=== PATIENT | female | born 2000 | race African-American/Black ===

== ENCOUNTER 2024-11-16 18:09 | Emergency (ER) | payer MEDICAID ==
[~2024-11-16] VITALS: Ht 160 cm; Wt 113.0 kg
[2024-11-16 18:16] VITALS: O2SAT 100
[2024-11-16] MEDS ORDERED: MUPI1OIN4 TP (20:32)
[2024-11-16 20:42] VITALS: BP 150/87; PULSE 88; RESP 18; O2SAT 100
== END 2024-11-16 20:45 | disposition home or self-care (01) ==
LOC: ER 18:09
DX: L01.00 Impetigo, unspecified (principal)
CPT/HCPCS: 99283

== ENCOUNTER 2024-12-29 10:56 | Emergency (ER) | payer MEDICAID ==
[~2024-12-29] VITALS: Ht 170.2 cm; Wt 91.0 kg
[~2024-12-29 10:56] MED LIST: MUPI1OIN4 TP
[2024-12-29 11:00] VITALS: O2SAT 98
[2024-12-29 11:06] VITALS: BP 131/77; PULSE 106; RESP 16; TEMP 36.9; O2SAT 99
[2024-12-29 11:28] LABS: BASOPHILS % 0.6 % (0.0-2.0); EOSINOPHILS % 0.9 % (0.0-5.0); HEMATOCRIT. 34.7 % (36.0-48.0); HEMOGLOBIN. 11.6 g/dL (12.0-16.0); LYMPHOCYTES % 29.7 % (20.0-50.0); MEAN PLATELET VOLUME 7.4 fl (7.4-10.4); MONOCYTES % 7.9 % (2.0-8.0); NEUTROPHILS % 60.9 % (40.0-76.0); PLATELET 459 x1000/uL (130-400); RED BLOOD CELL COUNT 4.14 mill/uL (4.2-5.4); RED CELL DISTRIBUTION WIDTH 14.3 % (11.6-14.6)
[2024-12-29 11:43] LABS: CREATININE 0.7 mg/dL (0.6-1.0); UREA NITROGEN BLOOD < 5 mg/dL (9-23)
[2024-12-29] MEDS: ONDANSETRON 4MG ODT PO ONE (12:27)
[2024-12-29] MEDS: MAGNESIUM/ALUMINUM HYDROXIDE/SIMETHICONE 30ML UDC PO ONE (12:27)
[2024-12-29] MEDS ORDERED: ONDA-239 PO (14:09)
[2024-12-29 15:32] LABS: CLARITY URINE CLOUDY (CLEAR); COLOR URINE YELLOW (YELLOW); GLUCOSE URINE NEGATIVE (NEGATIVE); KETONES URINE NEGATIVE (NEGATIVE); LEUKOCYTE ESTERASE URINE 1+ (NEGATIVE); NITRITE URINE POSITIVE (NEGATIVE); OCCULT BLOOD URINE NEGATIVE (NEGATIVE); PH URINE 8.0 (4.5-8.0); PROTEIN URINE TRACE (NEGATIVE); SPECIFIC GRAVITY URINE 1.019 (1.005-1.030); UROBILINOGEN URINE 1.0 E.U./dL (0.2-1.0)
[2024-12-29 15:59] LABS: BACTERIA URINE 3+; RBC URINE 0-2 /hpf (0-2); SQUAMOUS EPITHELIAL CELL URINE FEW /lpf (RARE/1+)
== END 2024-12-29 15:40 | disposition left against medical advice (07) ==
LOC: ER 10:56
DX: R11.2 Nausea with vomiting, unspecified (principal); R10.13 Epigastric pain
CPT/HCPCS: 99283; 80048; 81003; 83690; 85025; 36415; Q0162

== ENCOUNTER 2025-02-18 08:48 | Emergency (ER) | payer MEDICAID ==
[~2025-02-18] VITALS: Ht 170.2 cm; Wt 109.0 kg
[~2025-02-18 08:48] MED LIST changes: +ONDA-239 PO
[2025-02-18 08:51] VITALS: O2SAT 98
[2025-02-18 09:06] VITALS: BP 152/100; PULSE 75; RESP 14; TEMP 36.6; O2SAT 100
[2025-02-18] MEDS: CEFTRIAXONE SODIUM 500MG VIAL IM ONE (11:00)
[2025-02-18] MEDS ORDERED: DOXY100T28 MT (11:24)
[2025-02-22 04:07] LABS: CHLAMYDIA TRACHOMATIS NAA Negative (Negative); NEISSERIA GONORRHOEAE NAA Negative (Negative)
== END 2025-02-18 11:42 | disposition home or self-care (01) ==
LOC: ER 08:48
DX: Z11.3 Encounter for screening for infections with a predominantly sexual mode of transmission (principal)
CPT/HCPCS: 99283; 87491; 87591; 81025; 96372; J0696

== ENCOUNTER 2025-03-07 18:35 | Emergency (ER) | payer MEDICAID ==
[~2025-03-07] VITALS: Ht 172.7 cm; Wt 85.0 kg
[~2025-03-07 18:35] MED LIST changes: +DOXY100T28 MT
[2025-03-07 18:47] VITALS: O2SAT 100
[2025-03-07 19:40] LABS: BASOPHILS % 0.8 % (0.0-2.0); EOSINOPHILS % 0.5 % (0.0-5.0); HEMATOCRIT. 32.7 % (36.0-48.0); HEMOGLOBIN. 10.8 g/dL (12.0-16.0); LYMPHOCYTES % 20.6 % (20.0-50.0); MEAN PLATELET VOLUME 8.0 fl (7.4-10.4); MONOCYTES % 5.2 % (2.0-8.0); NEUTROPHILS % 72.9 % (40.0-76.0); PLATELET 494 x1000/uL (130-400); RED BLOOD CELL COUNT 3.88 mill/uL (4.2-5.4); RED CELL DISTRIBUTION WIDTH 14.2 % (11.6-14.6)
[2025-03-07 19:45] LABS: CLARITY URINE CLOUDY (CLEAR); COLOR URINE YELLOW (YELLOW); GLUCOSE URINE NEGATIVE (NEGATIVE); KETONES URINE NEGATIVE (NEGATIVE); LEUKOCYTE ESTERASE URINE 2+ (NEGATIVE); NITRITE URINE POSITIVE (NEGATIVE); OCCULT BLOOD URINE NEGATIVE (NEGATIVE); PH URINE 6.0 (4.5-8.0); PROTEIN URINE TRACE (NEGATIVE); SPECIFIC GRAVITY URINE 1.024 (1.005-1.030); UROBILINOGEN URINE 1.0 E.U./dL (0.2-1.0)
[2025-03-07 19:53] LABS: CREATININE 0.8 mg/dL (0.6-1.0); UREA NITROGEN BLOOD 9 mg/dL (9-23)
[2025-03-07 19:55] LABS: ASPARTATE AMINOTRANSFERASE 13 IU/L (<34); BILIRUBIN DIRECT 0.1 mg/dL (<=3.0)
[2025-03-07 19:56] LABS: BILIRUBIN TOTAL 0.4 mg/dL (0.1-1.0); PROTEIN TOTAL 8.2 g/dL (6.0-8.3)
[2025-03-07 20:15] LABS: RBC URINE NONE SEEN /hpf (0-2); SQUAMOUS EPITHELIAL CELL URINE FEW /lpf (RARE/1+); WBC URINE 25-50 /hpf (0-2)
[2025-03-07 20:16] LABS: BACTERIA URINE 2+; MUCUS URINE TRACE /lpf (< = 2+); RENAL EPITHELIAL CELLS URINE 1+ /lpf
[2025-03-07] MEDS ORDERED: CEFP200T14 MT (21:57)
[2025-03-07] MEDS ORDERED: IBUP-1455 MT (21:57)
[2025-03-07 22:13] VITALS: BP 131/85; PULSE 83; RESP 18; TEMP 37; O2SAT 100
== END 2025-03-07 22:17 | disposition home or self-care (01) ==
LOC: ER 18:35
DX: D25.9 Leiomyoma of uterus, unspecified (principal); N83.209 Unspecified ovarian cyst, unspecified side
CPT/HCPCS: 36415; 76830; 76856; 80048; 80076; 81003; 81025; 85025; 99284